=== PATIENT | female | born 1960 | race Caucasian/White ===

== ENCOUNTER 2018-11-03 10:05 | Emergency (ER) | payer OTHER ==
[2018-11-03 10:17] VITALS: BP 108/71; PULSE 76; TEMP 97.9; BMI 32.5
[2018-11-03] MEDS ORDERED: IBUPROFEN 400 MG TABLET (FP) PO ONE (10:51)
--- NOTE | 2018-11-03 11:02 | PDOC ---
History of Present Illness - General Chief Complaint: Pain Stated Complaint: LT. KNEE PAIN Time Seen by Provider: 11/03/18 10:37 History Source: Patient Exam Limitations: No Limitations (Left knee pain and abrasion after a slip and fall yesterday) Past History - Past Medical History Allergies/Adverse Reactions: Allergies Allergy/AdvReac Type Severity Reaction Status Date / Time No Known Allergies Allergy Verified 11/03/18 10:17 Home Medications: Ambulatory Orders Mupirocin Ointment [Bactroban] 1 applic TP BID 5 Days #1 tube 11/03/18 Naproxen 375 mg PO BID 10 Days #20 tablet 11/03/18 - Suicide/Smoking/Psychosocial Hx Smoking History: Never smoked Have you smoked in the past 12 months: No Information on smoking cessation initiated: No Hx Alcohol Use: No Drug/Substance Use Hx: No Review of Systems - Review of Systems Is the patient limited Divehi proficient: No Constitutional: No: Chills, Fever Musculoskeletal: Yes: Joint Pain (left knee pain), Joint Swelling. No: Back Pain, Neck Pain, Joint Stiffness *Physical Exam - Vital Signs Last Vital Signs Temp Pulse Resp BP Pulse Ox 97.9 F 76 18 108/71 98 11/03/18 10:15 11/03/18 10:15 11/03/18 10:15 11/03/18 10:15 11/03/18 10:15 - Physical Exam General Appearance: Yes: Nourished Respiratory/Chest: positive: Lungs Clear Cardiovascular: positive: Regular Rhythm, Regular Rate, S1, S2 Extremity: positive: Normal Capillary Refill, Tender (left knee+ abrasions noted , FROM but limited on flexion due to pain, stable gait) Neurologic: positive: drum sealer II-XII NML intact, Fully Oriented, Alert, Normal Mood/ Affect, Normal Response, Motor Strength 5/5 ED Treatment Course - RADIOLOGY Radiology Studies Ordered: Category Date Time Status KNEE 3 POS-LEFT [RAD] Stat Radiology 11/03/18 10:52 Ordered Medical Decision Making - Medical Decision Making 11/03/18 11:01 58y/o F with L knee pain after a slip and fall yesterday on the street she denies LOC or head trauma Pt with abrasion and swelling to Left knee UTD with tetanus xray pain control *DC/Admit/Observation/Transfer Diagnosis at time of Disposition: Knee pain, left Qualifiers: Chronicity: acute Qualified Code(s): M25.562 - Pain in left knee - Discharge Dispostion Disposition: HOME Condition at time of disposition: Stable Decision to Admit order: No - Prescriptions Prescriptions: Mupirocin Ointment [Bactroban] 1 applic TP BID 5 Days #1 tube Naproxen 375 mg PO BID 10 Days #20 tablet - Referrals Referrals: Paul Calvo MD [Primary Care Provider] - Ren Arenas DO [Staff Physician] - - Patient Instructions Printed Discharge Instructions: DI for Knee Pain, DI for Abrasion Additional Instructions: Your xray was negative for acute fracture and dislocation please take medication for pain as prescribed follow up with orthopedics if pain persist more than 2 weeks Return to the ER if worsening symptoms occurs - Post Discharge Activity Forms/Work/School Notes: Back to Work
== END 2018-11-03 12:20 | disposition home or self-care (01) ==
LOC: JERFT 10:05
DX: S80.212A Abrasion, left knee, initial encounter (principal); W01.0XXA Fall on same level from slipping, tripping and stumbling without subsequent striking against object, initial encounter; Y93.89 Activity, other specified; Y92.414 Local residential or business street as the place of occurrence of the external cause; Y99.8 Other external cause status
CPT/HCPCS: 73562-TC-LT-FY; 99282-25

== ENCOUNTER 2019-06-28 09:49 | Day surgery (SDC) | payer OTHER ==
[2019-06-27 10:15] VITALS: BMI 28.8
--- NOTE | 2019-06-27 13:48 | HP ---
[facility] - Chief Complaint Chief Complaint: left knee pain - Past Medical History Allergies/Adverse Reactions: Allergies Allergy/AdvReac Type Severity Reaction Status Date / Time No Known Allergies Allergy Verified 11/03/18 10:17 - Current Medications Current Medications: Home Medications Medication Instructions Recorded Ergocalciferol (Vitamin D2) 5,000 unit PO DAILY 06/27/19 [Vitamin D2] Magnesium 200 mg PO DAILY 06/27/19 Zinc 50 mg PO DAILY 06/27/19 [facility]ellite Physical Exam - Physical Examination General Appearance: Well Nourished, Well Developed, Alert & Oriented x3 ENT: Clear Lung: Normal air movement Extremities: Other (left knee- + swelling, + ttp ,decr rom , + mcmurrays, nvi) Neurological: Intact, Alert, Oriented [facility]ellite Impression/Plan - Impression/Plan Impression: left knee internal derangement Operative Procedure: left knee arthroscopy Date to be Performed: 06/27/19
[2019-06-28] MEDS ORDERED: DEXAMETHASONE SOD PHOSPHATE 4 MG/1 ML VIAL ONE (10:40)
[2019-06-28] MEDS ORDERED: PROPOFOL 20 ML ONE (10:40)
[2019-06-28] MEDS ORDERED: KETOROLAC TROMETHAMINE 30 MG/1 ML VIAL ONE (10:40)
[2019-06-28] MEDS ORDERED: MIDAZOLAM HCL 2 MG/2 ML SINGLE DOSE VIAL ONE (10:41)
[2019-06-28] MEDS ORDERED: BUPIVACAINE HCL/PF 0.5% (5 MG/ML) 30 ML VIAL IJ ONE (11:08)
[2019-06-28] MEDS ORDERED: LIDOCAINE 1%/EPI 1:100000 (20 ML MULTI DOSE VIAL) IJ ONE (11:09)
--- NOTE | 2019-06-28 11:19 | OP ---
Operative Note - Note: Operative Date: 06/28/19 ([facility]) Pre-Operative Diagnosis: left knee internal derangement Operation: left knee arthroscopy with PMM Post-Operative Diagnosis: Same as Pre-op Surgeon: Joel Rouse Anesthesia: General, Local Specimens Removed: shavings Estimated Blood Loss (mls): 5
[2019-06-28] MEDS ORDERED: ONDANSETRON 4 MG/2 ML VIAL IVPUSH PRN (12:14)
[2019-06-28] MEDS ORDERED: oxyCODONE HCL 5 MG TABLET PO PRN (12:14)
[2019-06-28 15:50] VITALS: TEMP 97.8
[2019-06-28 15:56] VITALS: BP 111/59; PULSE 66
--- NOTE | 2019-06-29 11:13 | OP ---
DATE OF OPERATION: 06/28/2019 PREOPERATIVE DIAGNOSIS: Internal derangement of left knee. POSTOPERATIVE DIAGNOSIS: Internal derangement of left knee. PROCEDURE: Arthroscopy, left knee with partial medial meniscectomy. SURGICAL ATTENDING: Joel Rouse MD ANESTHESIA: LMA. CLOSURE: 4-0 nylon. COMPLICATIONS: None. CONDITION: To recovery room in stable condition. DESCRIPTION OF PROCEDURE: The patient was taken to the operating room on June 28, 2019. General anesthesia with LMA was administered by the anesthesiologist. The left lower extremity was prepped and draped in the usual sterile fashion. The medial and lateral infrapatellar portal sites were infiltrated with 1% Xylocaine with epinephrine. Both portals were then made with 15 blade followed by a blunt trocar. The scope trocar was placed through the inferolateral portal up into the suprapatellar pouch. The knee was inflated with a cocktail of 10 mL 1% Xylocaine, 10 mL 0.5% Marcaine, and 20 mL of arthroscopic saline. After allowing the anesthetic to sit in the knee for a few minutes, the procedure was performed. The pouch was visualized to be clean. The medial and lateral gutters were visualized to be clean. The undersurface of the patella and trochlea were visualized to be intact. With valgus stress on the knee, the medial compartment was entered. The medial meniscus was visualized and probed and found to have an anterior horn tear through the intermeniscal ligament. This was debrided back to smooth and stable meniscal tissue using a meniscal biter and arthroscopic shaver. The mid and posterior portion of the meniscus was visualized and probed, found to be intact. The medial femoral condyle was run and found to be intact as was the medial tibial plateau. At 90 degrees, the ACL was visualized and probed and found to be intact. In the figure-4 position, lateral compartment was entered. Lateral meniscus was visualized and probed, found to be intact. Lateral femoral condyle was run and found to be intact as was the lateral tibial plateau. The knee was irrigated out with copious amounts of irrigation. The portal was closed using 4-0 nylon. A sterile pressure dressing was placed over the knee. Patient was awakened from anesthesia. Transferred to recovery in stable condition. No complications. Estimated blood loss negligible. Perez [id number]
== END 2019-06-28 14:55 | disposition home or self-care (01) ==
LOC: JASU-SURG 09:49
PROVIDERS: ATTEND Orthopaedic Surgery
PROC: 0SBD4ZZ Excision of Left Knee Joint, Percutaneous Endoscopic Approach (ICD-10-PCS; principal; 2019-06-28 08:00)
DX: S83.242A Other tear of medial meniscus, current injury, left knee, initial encounter (principal); X58.XXXA Exposure to other specified factors, initial encounter; Y93.9 Activity, unspecified; Y92.9 Unspecified place or not applicable; Y99.9 Unspecified external cause status
CPT/HCPCS: 94760

== ENCOUNTER 2021-12-01 23:28 | Emergency (ER) | payer OTHER ==
[2021-12-01 23:49] VITALS: BP 128/69; PULSE 64; TEMP 97.7; BMI 29.0
[2021-12-02] MEDS ORDERED: ACETAMINOPHEN 1000 MG/100 ML BAG IVPB ONE (00:20)
[2021-12-02] MEDS ORDERED: ONDANSETRON 4 MG/2 ML VIAL IVPUSH ONE (00:20)
[2021-12-02] MEDS ORDERED: FAMOTIDINE 20 MG/50 ML IVPB 20 MG/50 ML MG IVPB ONE ×2 (00:20→00:34)
[2021-12-02] MEDS ORDERED: SODIUM CHLORIDE 0.9% 500 ML INFUS.BAG IV ONE (00:23)
[2021-12-02] MEDS ORDERED: ONDANSETRON 4 MG/2 ML VIAL ONE (00:34)
[2021-12-02] MEDS ORDERED: ACETAMINOPHEN INJECTION 100 ML IVPB ONE (00:34)
[2021-12-02 01:07] LABS: HEMOGLOBIN 13.3 GM/dL (10.7-15.3); MCH 30.3 pg (25.7-33.7); MCHC 34.2 g/dl (32.0-36.0); MEAN CELL VOLUME 88.7 fl (80-96); MEAN PLT VOLUME 9.2 fl (7.5-11.1); PLATELET COUNT 190 10^3/uL (134-434); RBC 4.39 M/mm3 (3.60-5.2); WHITE BLOOD COUNT 9.4 K/mm3 (4.0-10.0)
[2021-12-02 01:25] LABS: ALBUMIN 3.8 g/dl (3.4-5.0); CALCIUM 9.5 mg/dL (8.5-10.1)
[2021-12-02 01:28] LABS: CREATININE 0.5 mg/dL (0.55-1.3)
[2021-12-02 01:30] LABS: BILIRUBIN,TOTAL 0.4 mg/dL (0.2-1); TOT PROT 6.7 g/dl (6.4-8.2)
[2021-12-02 01:38] LABS: BLOOD UREA NITROGEN 11.9 mg/dL (7-18)
[2021-12-02] MEDS ORDERED: SUCRALFATE 1 GM TABLET (FP) PO ONE (03:05)
[2021-12-02] MEDS ORDERED: MAG HYDROX/AL HYDROX/SIMETH -MYLANTA- ORAL SUSPENSION PO ONE (03:05)
[2021-12-02] MEDS ORDERED: SUCRALFATE 1 GM TABLET (FP) ONE (03:12)
[2021-12-02] MEDS ORDERED: MAG HYDROX/AL HYDROX/SIMETH 30 ML UNIT-DOSE CUP ONE (03:12)
== END 2021-12-02 04:20 | disposition home or self-care (01) ==
LOC: JER 23:28
PROC: 3E0333Z Introduction of Anti-inflammatory into Peripheral Vein, Percutaneous Approach (ICD-10-PCS; principal; 2021-12-01)
PROC: 3E033GC Introduction of Other Therapeutic Substance into Peripheral Vein, Percutaneous Approach (ICD-10-PCS; 2021-12-01)
PROC: 3E033GC Introduction of Other Therapeutic Substance into Peripheral Vein, Percutaneous Approach (ICD-10-PCS; 2021-12-01)
DX: R11.2 Nausea with vomiting, unspecified (principal); R10.13 Epigastric pain
CPT/HCPCS: 36415; 71046-TC-FY; 80053; 83690; 84484; 85027; 93005; 93010; 99285-25; C9803-CS; U0003; U0005